=== PATIENT | female | born 1990 | race American Indian/Alaskan Native ===

== ENCOUNTER 2020-11-08 00:17 | Emergency (ER) | payer OTHER ==
[2020-11-08 03:59] LABS: Bilirubin,Urine NEG (Negative); Blood,Urine NEG (Negative); Color,Urine Yellow (Yellow); Mucus,Urine 2+ /HPF
[2020-11-08 04:00] LABS: HCG Qualitative,Urine Negative (Negative)
--- NOTE | 2020-11-08 04:50 | Emergency Department Report ---
ED Female HPI - General Chief complaint: Urogenital-Female Stated complaint: POSSIBLE BLATTER INFECTION Time Seen by Provider: 11/08/20 04:16 Source: patient Mode of arrival: Ambulatory Limitations: No Limitations - History of Present Illness Initial comments: Patient is a 30-year-old female presents emergency room with complaints of "UTI" that began a week ago. She has associated hematuria, right flank pain, suprapubic abdominal pain, dysuria, urinary frequency, urinary urgency. She denies any vomiting, diarrhea, abnormal vaginal discharge, itching or burning, lesions, pelvic pain. No past medical history. Allergy to penicillin. Last menstrual cycle a week ago. - Related Data Previous Rx's Medication Instructions Recorded Last Taken Type Ciprofloxacin HCl [Ciprofloxacin 500 mg PO BID 7 Days #28 tablet 11/08/20 Unknown Rx TAB] Phenazopyridine [Pyridium] 100 mg PO TID 2 Days #6 tab 11/08/20 Unknown Rx Allergies Allergy/AdvReac Type Severity Reaction Status Date / Time Penicillins Allergy Hives Verified 11/08/20 03:12 ED Review of Systems ROS: Stated complaint: POSSIBLE BLATTER INFECTION Other details as noted in HPI Comment: All other systems reviewed and negative ED Past Medical Hx - Past Medical History Previous Medical History?: Yes Additional medical history: Obesity - Surgical History Past Surgical History?: No - Social History Smoking Status: Current Every Day Smoker Substance Use Type: Marijuana - Medications Home Medications: Home Medications Medication Instructions Recorded Confirmed Last Taken Type Ciprofloxacin HCl [Ciprofloxacin 500 mg PO BID 7 Days #28 tablet 11/08/20 Unknown Rx TAB] Phenazopyridine [Pyridium] 100 mg PO TID 2 Days #6 tab 11/08/20 Unknown Rx ED Physical Exam - General Limitations: No Limitations General appearance: alert, in no apparent distress - Head Head exam: Present: atraumatic, normocephalic - Eye Eye exam: Present: normal appearance - ENT ENT exam: Present: mucous membranes moist - Respiratory Respiratory exam: Present: normal lung sounds bilaterally. Absent: respiratory distress, wheezes, rales, rhonchi, stridor, chest wall tenderness, accessory muscle use, decreased breath sounds, prolonged expiratory - Cardiovascular Cardiovascular Exam: Present: regular rate, normal rhythm, normal heart sounds. Absent: systolic murmur, diastolic murmur, rubs, gallop - GI/Abdominal GI/Abdominal exam: Present: soft, normal bowel sounds. Absent: distended, tenderness, guarding, rebound, rigid - Back Exam Back exam: Absent: CVA tenderness (R), CVA tenderness (L) - Neurological Exam Neurological exam: Present: alert, oriented X3 - Psychiatric Psychiatric exam: Present: normal affect, normal mood - Skin Skin exam: Present: warm, dry, intact ED Course Vital Signs 11/08/20 11/08/20 03:20 05:07 Temperature 98.6 F 98.2 F Pulse Rate 83 75 Respiratory 18 16 Rate Blood Pressure 167/77 165/89 [Left] O2 Sat by Pulse 100 100 Oximetry ED Medical Decision Making - Lab Data Vital Signs 11/08/20 11/08/20 03:20 05:07 Temperature 98.6 F 98.2 F Pulse Rate 83 75 Respiratory 18 16 Rate Blood Pressure 167/77 165/89 [Left] O2 Sat by Pulse 100 100 Oximetry - Medical Decision Making Patient is a 30-year-old female presents emergency room with complaints of "UTI" that began a week ago. She has associated hematuria, right flank pain, suprapubic abdominal pain, dysuria, urinary frequency, urinary urgency. She denies any vomiting, diarrhea, abnormal vaginal discharge, itching or burning, lesions, pelvic pain. No past medical history. Allergy to penicillin. Last menstrual cycle a week ago. vss. on exam: No abdominal tenderness palpation, no guarding, no rebound, no rigidity, nor bowel sounds, no peritoneal signs, no CVA tenderness. UA shows evidence of mild UTI. Patient given prescription for ciprofloxacin due to penicillin allergy and Pyridium. Advised patient Please take medication as prescribed. Medication may turn your urine orange, this is normal. Increase your water intake. Follow-up with a primary care doctor and have your urine retested. Return to emergency room for any new or worsening symptoms. Critical care attestation.: If time is entered above; I have spent that time in minutes in the direct care of this critically ill patient, excluding procedure time. ED Disposition Clinical Impression: UTI (urinary tract infection) Qualifiers: Urinary tract infection type: acute cystitis Hematuria presence: without hematuria Qualified Code(s): N30.00 - Acute cystitis without hematuria Disposition: TO HOME OR SELFCARE Is pt being admited?: No Does the pt Need Aspirin: No Condition: Stable Instructions: Urinary Tract Infection, Adult Additional Instructions: Please take medication as prescribed. Medication may turn your urine orange, this is normal. Increase your water intake. Follow-up with a primary care doctor and have your urine retested. Return to emergency room for any new or worsening symptoms. Prescriptions: Ciprofloxacin HCl [Ciprofloxacin TAB] 500 mg PO BID 7 Days #28 tablet Phenazopyridine [Pyridium] 100 mg PO TID 2 Days #6 tab Referrals: MARLI CLAROS MD [Primary Care Provider] - 3-5 Days MINDA AYALA MD [Staff Physician] - 3-5 Days [facility] [Provider Group] - 3-5 Days Forms: Work/School Release Form(ED) Time of Disposition: 04:48 Print Language: MACEDONIAN
[2020-11-08 05:50] VITALS: BP 165/89
== END 2020-11-08 05:07 | disposition home or self-care (01) ==
LOC: ED 00:17
DX: N39.0 Urinary tract infection, site not specified (principal); F17.200 Nicotine dependence, unspecified, uncomplicated; F12.90 Cannabis use, unspecified, uncomplicated; E66.9 Obesity, unspecified; Z68.43 Body mass index [BMI] 50.0-59.9, adult; Z88.0 Allergy status to penicillin; Z79.899 Other long term (current) drug therapy
CPT/HCPCS: 81001; 81025; 87086; 99283